=== PATIENT | male | born 1940 | race Caucasian/White ===

== ENCOUNTER → 2018-08-31 | Outpatient (CLI) | payer OTHER | LOC: M RAD 10:02 | DX: K80.31 Calculus of bile duct with cholangitis, unspecified, with obstruction (principal) | CPT/HCPCS: 74181 ==

== ENCOUNTER 2018-09-04 12:46 | Day surgery (SDC) | payer OTHER ==
[2018-09-04] MEDS ORDERED: NEOSTIGMINE 10 MG/10 ML VIAL (J2710) As Ordered (16:15)
[2018-09-04] MEDS ORDERED: GLYCOPYRROLATE INJ 0.2 MG/ML 2 ML VIAL As Ordered (16:15)
[2018-09-04] MEDS ORDERED: LIDOCAINE 2% INJ 100 MG/5 ML SDV (FOR ANES.) As Ordered (16:15)
[2018-09-04] MEDS ORDERED: PROPOFOL 200 MG/20 ML VIAL As Ordered (16:15)
[2018-09-04] MEDS ORDERED: dexameTHASONE 4 MG/ML 1ML VIAL (J1100) As Ordered (16:15)
[2018-09-04] MEDS ORDERED: KETOROLAC 60 MG/2 ML VIAL (J1885) As Ordered (16:15)
[2018-09-04] MEDS ORDERED: fentaNYL 100 MCG/2 ML INJECTION (J3010) As Ordered ×3 (16:15→17:37)
[2018-09-04] MEDS ORDERED: ONDANSETRON 4MG/2ML VIAL (J2405) As Ordered (16:15)
[2018-09-04] MEDS ORDERED: ROCURONIUM BROMIDE 50 MG/5 ML VIAL As Ordered (16:15)
[2018-09-04] MEDS ORDERED: MIDAZOLAM INJ 2 MG/2 ML VIAL (J2250) As Ordered (16:16)
[2018-09-04] MEDS: ISOVUE-300 61% 50ML VIAL (Q9967) As Ordered ×2 (17:42→18:00)
[2018-09-04] MEDS ORDERED: fentaNYL 100 MCG/2 ML INJECTION (J3010) IV (19:15)
[2018-09-04] MEDS ORDERED: LR 1,000 ML IV (19:15)
[2018-09-04] MEDS ORDERED: ONDANSETRON 4MG/2ML VIAL (J2405) IV (19:15)
== END 2018-09-05 11:11 | disposition home or self-care (01) ==
LOC: M SDC 12:46 → M MS5PR 19:45 → M SDC 09-05 11:11
DX: K80.50 Calculus of bile duct without cholangitis or cholecystitis without obstruction (principal); K83.8 Other specified diseases of biliary tract; K80.20 Calculus of gallbladder without cholecystitis without obstruction; I10 Essential (primary) hypertension; R29.898 Other symptoms and signs involving the musculoskeletal system; R06.83 Snoring; Z79.899 Other long term (current) drug therapy; Z85.46 Personal history of malignant neoplasm of prostate; Z85.51 Personal history of malignant neoplasm of bladder; Z92.3 Personal history of irradiation; Z86.718 Personal history of other venous thrombosis and embolism
CPT/HCPCS: 43262

== ENCOUNTER 2018-11-18 06:03 | Day surgery (SDC) | payer OTHER ==
[2018-11-18] MEDS: LR 1,000 ML IV (06:55)
[2018-11-18] MEDS ORDERED: ONDANSETRON 4MG/2ML VIAL (J2405) As Ordered (07:19)
[2018-11-18] MEDS ORDERED: MIDAZOLAM INJ 2 MG/2 ML VIAL (J2250) As Ordered (07:19)
[2018-11-18] MEDS ORDERED: ROCURONIUM BROMIDE 50 MG/5 ML VIAL As Ordered (07:19)
[2018-11-18] MEDS ORDERED: dexameTHASONE 4 MG/ML 1ML VIAL (J1100) As Ordered (07:19)
[2018-11-18] MEDS ORDERED: PROPOFOL 200 MG/20 ML VIAL As Ordered (07:19)
[2018-11-18] MEDS ORDERED: fentaNYL 100 MCG/2 ML INJECTION (J3010) As Ordered (07:19)
[2018-11-18] MEDS ORDERED: LIDOCAINE 2% INJ 100 MG/5 ML SDV (FOR ANES.) As Ordered (07:19)
[2018-11-18] MEDS ORDERED: GLYCOPYRROLATE INJ 0.2 MG/ML 2 ML VIAL As Ordered ×2 (08:05)
[2018-11-18] MEDS ORDERED: NEOSTIGMINE 10 MG/10 ML VIAL (J2710) As Ordered (08:05)
[2018-11-18] MEDS ORDERED: ePHEDrine SULFATE 25 MG/5 ML(5MG/ML) SYRINGE As Ordered (08:07)
[2018-11-18] MEDS ORDERED: ISOVUE-300 61% 50ML VIAL (Q9967) As Ordered (08:14)
[2018-11-18] MEDS: ISOVUE-300 61% 50ML VIAL (Q9967) As Ordered (08:19)
[2018-11-18] MEDS ORDERED: ONDANSETRON 4MG/2ML VIAL (J2405) IV (09:15)
[2018-11-18] MEDS ORDERED: LR 1,000 ML IV (09:15)
[2018-11-18] MEDS ORDERED: fentaNYL 100 MCG/2 ML INJECTION (J3010) IV (09:15)
[2018-11-18] MEDS ORDERED: MORPHINE 10 MG/ML 1ML VIAL (J2270) IV (09:15)
== END 2018-11-18 09:57 | disposition home or self-care (01) ==
LOC: M SDC 06:03
DX: K80.51 Calculus of bile duct without cholangitis or cholecystitis with obstruction (principal); I10 Essential (primary) hypertension; R06.83 Snoring; Z46.59 Encounter for fitting and adjustment of other gastrointestinal appliance and device; Z79.82 Long term (current) use of aspirin; Z86.718 Personal history of other venous thrombosis and embolism; Z92.3 Personal history of irradiation; Z85.46 Personal history of malignant neoplasm of prostate; Z85.51 Personal history of malignant neoplasm of bladder
CPT/HCPCS: 43275

== ENCOUNTER → 2019-01-12 | Outpatient (CLI) | payer MEDICARE ==
[~2019-01-12] MED LIST: ASPI1CHW2 PO; CIPR-249 PO; METR-201 PO; MULTCAP PO
--- NOTE | 2019-01-12 10:25 | REP ---
MRCP: MRCP exam is accomplished utilizing multiple heavily T2-weighted sequences in the axial and coronal planes with MIP reconstruction images. Comparison made with prior study of 08/31/2018. There is mild intrahepatic biliary dilatation. The common bile duct is slightly dilated at 8 mm. It previously measured 10 mm. There is a filling defect in the cystic duct remnant near its junction with the common bile duct, measuring 6 mm in diameter. In the adjacent more distal common bile duct, there is an oval filling defect consistent with a stone measuring 12 x 7 mm. Just distal to that, there appears to be another calculus measuring 10 x 5 mm. No other filling defects are seen. Pancreatic duct is normal in caliber. I see no adenopathy or free fluid in the visualized abdomen. The other visualized abdominal structures appear unremarkable. IMPRESSION: Mild central intrahepatic biliary dilatation. Common bile duct slightly dilated at 8 mm. Filling defects consistent with stones as discussed in detail above with one seen in the cystic duct remnant measuring 6 mm in diameter ,and two in the common bile duct measuring 12 x 7 mm and 10 x 5 mm. Electronically Signed by Otis Lake MD 01/12/2019 10:36 A
== END ==
LOC: M RAD 08:42
PROVIDERS: ATTEND Internal Medicine Gastroenterology
DX: K83.1 Obstruction of bile duct (principal)

== ENCOUNTER 2019-01-20 05:46 | Day surgery (SDC) | payer MEDICARE ==
[~2019-01-20] VITALS: Ht 180.3 cm; Wt 83.9 kg
[2019-01-20] MEDS ORDERED: LIDOCAINE 1% MDV 20ML VIAL SQ PRN (06:00)
[2019-01-20] MEDS ORDERED: NS 1,000 ML IV ONE (06:45)
[2019-01-20] MEDS ORDERED: LR 1,000 ML IV ONE (06:45)
[2019-01-20] MEDS ORDERED: ISOVUE-300 61% 50ML VIAL (Q9967) As Ordered ONE (07:12)
[2019-01-20] MEDS ORDERED: LIDOCAINE 2% INJ 100 MG/5 ML SDV (FOR ANES.) As Ordered ONE (08:03)
[2019-01-20] MEDS ORDERED: fentaNYL 100 MCG/2 ML INJECTION (J3010) As Ordered ONE (08:03)
[2019-01-20] MEDS ORDERED: dexameTHASONE 4 MG/ML 1ML VIAL (J1100) As Ordered ONE (08:03)
[2019-01-20] MEDS ORDERED: NEOSTIGMINE 10 MG/10 ML VIAL (J2710) As Ordered ONE (08:03)
[2019-01-20] MEDS ORDERED: MIDAZOLAM INJ 2 MG/2 ML VIAL (J2250) As Ordered ONE (08:03)
[2019-01-20] MEDS ORDERED: PROPOFOL 200 MG/20 ML VIAL As Ordered ONE (08:03)
[2019-01-20] MEDS ORDERED: ONDANSETRON 4MG/2ML VIAL (J2405) As Ordered ONE (08:03)
[2019-01-20] MEDS ORDERED: GLYCOPYRROLATE INJ 0.2 MG/ML 2 ML VIAL As Ordered ONE (08:03)
[2019-01-20] MEDS ORDERED: ePHEDrine SULFATE 25 MG/5 ML(5MG/ML) SYRINGE As Ordered ONE (08:03)
[2019-01-20] MEDS ORDERED: ROCURONIUM BROMIDE 50 MG/5 ML VIAL As Ordered ONE (08:03)
--- NOTE | 2019-01-20 08:59 | ROOR ---
Patient Name: Tobias Li Procedure Date: 01/20/2019 7:35 AM Date of : 1940 Age: 78 Room: [facility] Gender: Male Note Status: Finalized Procedure: ERCP Indications: Common bile duct stone(s), Bile duct stone on magnetic resonance cholangiopancreatography Providers: Tito CHUA MD Referring MD: ELINA WEINBERG DO Requesting Provider: Medicines: General Anesthesia Complications: No immediate complications. Procedure: Pre-Anesthesia Assessment: - The heart rate, respiratory rate, oxygen saturations, blood pressure, adequacy of pulmonary ventilation, and response to care were monitored throughout the procedure. The Duodenoscope was introduced through the mouth, and advanced to the duodenum and used to inject contrast into the bile duct. The ERCP was accomplished without difficulty. The patient tolerated the procedure well. Findings: The supervisor filling and packing film was normal. The esophagus was successfully intubated under direct vision. The scope was advanced to a normal major papilla in the descending duodenum without detailed examination of the pharynx, larynx and associated structures, and upper GI tract. The upper GI tract was grossly normal. A straight Roadrunner wire was passed into the biliary tree. The bile duct was then deeply cannulated over the guidewire. Contrast was injected. I personally interpreted the bile duct images. Ductal flow of contrast was adequate. Image quality was adequate. Contrast extended to the entire biliary tree. Choledocholithiasis was found in a nondilated duct. The biliary sphincterotomy was extended to a total of 8 mm in length with a monofilament traction (standard) sphincterotome using ERBE electrocautery. There was no post-sphincterotomy bleeding. The biliary tree was swept with a 12 mm balloon starting at the bifurcation. Sludge (tiny gravel) was swept from the duct. One stone (4-5 mm round,black) was removed. No stones remained. The bile duct tapers smoothly without transition in the distal third of the CBD. Cells for cytology were obtained by brushing in the lower third of the main bile duct. Impression: - Choledocholithiasis was found. Complete removal was accomplished by biliary sphincterotomy and balloon extraction. - A biliary sphincterotomy was performed (extended previous sphincterotomy). - The biliary tree was swept. - Cells for cytology obtained in the lower third of the main duct. Recommendation: - I anticipate no further need for intervention. Tito Chua MD Tito CHUA MD 01/20/2019 8:59:14 AM This report has been signed electronically. Number of Addenda: 0 Note Initiated On: 01/20/2019 7:35 AM Estimated Blood Loss: Estimated blood loss: none.
[2019-01-20] MEDS ORDERED: PERCOCET 5MG/325MG TAB PO PRN (09:15)
[2019-01-20] MEDS ORDERED: LR 1,000 ML IV SCH (09:15)
[2019-01-20] MEDS ORDERED: ONDANSETRON 4MG/2ML VIAL (J2405) IV PRN (09:15)
[2019-01-20] MEDS ORDERED: fentaNYL 100 MCG/2 ML INJECTION (J3010) IV PRN (09:15)
[2019-01-20 10:00] VITALS: BP 166/89
--- NOTE | 2019-01-20 10:07 | REP ---
ERCP in OR: 01/20/2019. Clinical history: Choledocholithiasis. Technique: 39 images from C-arm fluoroscopy provided to Dr. Chua for ERCP with common duct stone removal. Findings: Contrast filling a dilated common duct and right and left intrahepatic ducts are noted. Filling defect near the inferior aspect of the common duct above the ampulla on the contrast enhanced images. Balloon within the common duct was then pulled back to remove the stone. The re-injection of the common duct showed no persistent filling defect. No extravasation. Fluoroscopy time: 8 minutes and 28 seconds. Electronically Signed by Lincoln Blanton MD 01/20/2019 09:14 P
== END 2019-01-20 10:02 | disposition home or self-care (01) ==
LOC: M SDC 05:46
PROVIDERS: ATTEND Internal Medicine Gastroenterology
DX: K80.50 Calculus of bile duct without cholangitis or cholecystitis without obstruction (principal); I10 Essential (primary) hypertension; R06.83 Snoring; Z79.82 Long term (current) use of aspirin; Z85.51 Personal history of malignant neoplasm of bladder; Z85.46 Personal history of malignant neoplasm of prostate; Z92.3 Personal history of irradiation
CPT/HCPCS: 43262; 43264; 74330; 88104; C1887; J1100; J2250; J2405; J2710; J3010; Q9967